=== PATIENT | female | born 1980 | race Caucasian/White ===

== ENCOUNTER 2022-09-15 09:42 | Day surgery (SDC) | payer OTHER ==
[2022-09-10 14:03] VITALS: BMI 41.5
[2022-09-15] MEDS ORDERED: Gabapentin 300 MG CAP ONE (10:02)
[2022-09-15] MEDS ORDERED: CeleCOXIB 100 MG CAP ONE (10:02)
[2022-09-15] MEDS ORDERED: Famotidine/PF 20 mg/2ml Vial ONE (10:03)
[2022-09-15] MEDS ORDERED: Bupivacaine HCl 0.5%/Epinephrine 1:200,000/PF 30 ml Vial ONE (10:20)
[2022-09-15 10:32] LABS: Hemoglobin 13.5 g/dL (12.0-15.5); Mean Corpuscular Hemoglobin 30.1 pg (27.0-33.0); Mean Corpuscular Volume 91.1 fl (81.6-98.3); Mean Platelet Volume 10.9 fl (7.4-10.4); Platelet Count 254 10x3/uL (150-450); RBC Distribution Width 13.4 % (11.5-14.5); Red Blood Cell (RBC) Count 4.49 10x6/uL (3.90-5.03); White Blood Cell (WBC) Count 10.4 10x3/uL (3.5-10.5)
[2022-09-15] MEDS ORDERED: Ketorolac Tromethamine 30 MG/ML VIAL ONE (10:48)
[2022-09-15] MEDS ORDERED: fentaNYL 50 mcg/mL 1 mL Vial ONE (10:48)
[2022-09-15] MEDS ORDERED: PROPOFOL 20 ML ONE (10:48)
[2022-09-15] MEDS ORDERED: Lidocaine 1% PF 5 ML VIAL ONE (10:48)
[2022-09-15] MEDS ORDERED: Glycopyrrolate 0.2 MG/ML 5 ML SYRINGE ONE (10:48)
[2022-09-15] MEDS ORDERED: Midazolam HCl 2 mg/2 ml Vial ONE (10:48)
[2022-09-15] MEDS ORDERED: Dexamethasone 20 MG/5 ML VIAL ONE (10:48)
[2022-09-15] MEDS ORDERED: Rocuronium Bromide 10 MG/ML (10ML VIAL) ONE (10:48)
[2022-09-15 10:54] LABS: BHCG - Serum Negative (NEGATIVE); Pregs Control Background? CLEAR/WHITE (CLR/WHITE); Pregs Control Bar Appear? YES (CONTROL BAR)
[2022-09-15] MEDS ORDERED: Levofloxacin 500 mg/D5W 100 ml Premix Bag ONE (10:56)
[2022-09-15] MEDS ORDERED: Clindamycin/D5W 900 mg/50 ml Premix Bag ONE (11:10)
== END 2022-09-15 13:55 | disposition home or self-care (01) ==
LOC: CSHSDC 09:42
PROVIDERS: ATTEND Obstetrics & Gynecology
PROC: 0UB97ZZ Excision of Uterus, Via Natural or Artificial Opening (ICD-10-PCS; principal; 2022-09-15)
PROC: 3E1P88Z Irrigation of Female Reproductive using Irrigating Substance, Via Natural or Artificial Opening Endoscopic (ICD-10-PCS; 2022-09-15)
DX: D25.2 Subserosal leiomyoma of uterus (principal); D25.1 Intramural leiomyoma of uterus; N80.9 Endometriosis, unspecified; E66.9 Obesity, unspecified; N80.3A Superficial endometriosis of the uterosacral ligament(s); Z88.1 Allergy status to other antibiotic agents; Z90.49 Acquired absence of other specified parts of digestive tract; Z79.899 Other long term (current) drug therapy; Z68.41 Body mass index [BMI] 40.0-44.9, adult
CPT/HCPCS: 36415; 84703; 85027; 86850; 86900; 86901; 88305; 88342; J1100; J1885; J1956; J2250; J2704; J3010; J3490; Q9968; S0028